=== PATIENT | female | born 1975 | race Caucasian/White ===

== ENCOUNTER 2017-02-28 11:07 | Emergency (ER) | payer OTHER ==
[~2017-02-28] VITALS: Ht 162.6 cm; Wt 61.2 kg
--- NOTE | 2017-02-28 11:15 | NUR ---
dr houser at the bedside for eval and exam.
--- NOTE | 2017-02-28 11:28 | NUR ---
Patient discharged to home in stable conditon. Written and verbal after care instructions given. Patient verbalizes understanding of instructions.
[2017-02-28 11:29] VITALS: BP 106/66
== END 2017-02-28 11:31 | disposition home or self-care (01) ==
LOC: ER 11:07
DX: H65.192 Other acute nonsuppurative otitis media, left ear (principal)
CPT/HCPCS: A4663

== ENCOUNTER 2019-05-02 13:50 | Emergency (ER) | payer OTHER ==
[~2019-05-02] VITALS: Ht 162.6 cm; Wt 52.2 kg
[2019-05-02] MEDS ORDERED: TDAP DIPH,PERTUSS,TET VAC/PF 0.5 ML DISP.SYRIN IM ONE (15:51)
[2019-05-02] MEDS: TDAP DIPH,PERTUSS,TET VAC/PF 0.5 ML DISP.SYRIN IM ONE (15:53)
[2019-05-02] MEDS: LIDOCAINE HCL 1% 20 ML VIAL IJ ONE (16:13)
[2019-05-02] MEDS ORDERED: LIDOCAINE HCL 1% 20 ML VIAL ONE (16:16)
== END 2019-05-02 17:10 | disposition home or self-care (01) ==
LOC: ER 13:50
DX: S00.81XA Abrasion of other part of head, initial encounter (principal); S01.551A Open bite of lip, initial encounter; W61.91XA Bitten by other birds, initial encounter; Y93.89 Activity, other specified; Y92.89 Other specified places as the place of occurrence of the external cause; Y99.8 Other external cause status
CPT/HCPCS: 90471; 90715; 99283; J3490; A4217; A4663

== ENCOUNTER 2021-05-09 10:15 | Emergency (ER) | payer OTHER ==
[~2021-05-09] VITALS: Ht 165.1 cm; Wt 54.4 kg
--- NOTE | 2021-05-09 10:42 | NUR ---
[email or web address], medical screening exam in progress
[2021-05-09] MEDS ORDERED: IBUP-1955 PO (10:49)
[2021-05-09] MEDS ORDERED: NEOM10DR11 OT (10:49)
[2021-05-09] MEDS ORDERED: AMOX500C2 PO (10:50)
--- NOTE | 2021-05-09 10:57 | NUR ---
Patient discharged to home in stable condition with brisk steady gait. Written and verbal after care instructions given to patient. Patient verbalized understanding & compliance of instructions. Stressed follow up with her primary doctor and ENT doctor or return to ER for worsening s/s.
== END 2021-05-09 10:57 | disposition home or self-care (01) ==
LOC: ER 10:15
DX: H66.012 Acute suppurative otitis media with spontaneous rupture of ear drum, left ear (principal)
CPT/HCPCS: A4663

== ENCOUNTER 2025-04-12 09:56 | Emergency (ER) | payer OTHER ==
[~2025-04-12] VITALS: Ht 162.6 cm; Wt 54.4 kg
[~2025-04-12 09:56] MED LIST: AMOX500C2 PO; IBUP-1955 PO; NEOM10DR11 OT
[2025-04-12 11:10] VITALS: BP 111/71; TEMP 97.8; O2SAT 96
== END 2025-04-12 11:11 | disposition home or self-care (01) ==
LOC: ER 09:56
DX: S93.492A Sprain of other ligament of left ankle, initial encounter (principal); Z88.7 Allergy status to serum and vaccine; Z60.2 Problems related to living alone; W01.0XXA Fall on same level from slipping, tripping and stumbling without subsequent striking against object, initial encounter; Y93.89 Activity, other specified; Y92.89 Other specified places as the place of occurrence of the external cause; Y99.8 Other external cause status
CPT/HCPCS: 73610; A4606; A4663